=== PATIENT | male | born 1950 | race Caucasian/White ===

== ENCOUNTER → 2019-03-19 | Outpatient (CLI) | payer OTHER, MEDICARE ==
--- NOTE | 2019-03-19 11:01 | 2DMMODE ---
[facility] [place] [address] 2 D/M-MODE ECHOCARDIOGRAM Name: JEROME HUNTER [id number] Admission: 03/19/19 Attend Phys: Jef Clark Discharge: Date of : 50 Report #: [id number] THIS REPORT FOR: //name// APPROVED REPORT Study performed: 03/19/2019 10:24:21 EXAM: Comprehensive 2D, Doppler, and color-flow Echocardiogram Patient Location: Out-Patient Status: routine BSA: 1.98 HR: 68 bpm BP: 106/80 mmHg Rhythm: NSR/Irregular Other Information Study Quality: Good Indications Palpitations 2D Dimensions RVDd: 35.67 mm IVSd: 8.57 (7-11mm) LVOT Diam: 21.29 (18-24mm) LVDd: 43.49 mm PWd: 9.35 (7-11mm) Ascending Ao: 29.37 (22-36mm) LVDs: 30.96 (25-40mm) Aortic Root: 32.10 mm Volumes Left Atrial Volume (Systole) Single Plane 4CH: 48.77 mL Single Plane 2CH: 51.02 mL LA ESV Index: 28.00 mL/m2 Aortic Valve AoV Peak Christ.: 1.03 m/s AO Peak Gr.: 4.21 mmHg LVOT Max P.36 mmHg LVOT Max V: 0.77 m/s DIANA Vmax: 2.67 cm2 Mitral Valve E/A Ratio: 1.5 MV Decel. Time: 144.33 ms MV E Max Christ.: 1.01 m/s [facility] [address] [place] [address] 2 D/M-MODE ECHOCARDIOGRAM Name: JEROME HUNTER Room #: REG [facility] [id number] Admission: 03/19/19 Attend Phys: Jef Clark Discharge: Date of : 50 Report #: [id number] MV A Christ.: 0.66 m/s MV PHT: 41.85 ms IVRT: 86.51 ms Pulmonary Valve PV Peak Christ.: 0.53 m/s PV Peak Gr.: 1.13 mmHg Pulmonary Vein P Vein S: 0.77 m/s P Vein A: 0.36 m/s P Vein D: 0.59 m/s P Vein A Dur.: 103.8 msec P Vein S/D Ratio: 1.31 Tricuspid Valve TR Peak Christ.: 2.50 m/s RAP Estimate: 5.00 mmHg TR Peak Gr.: 24.00 mmHg PA Pressure: 29.00 mmHg Left Ventricle The left ventricle is normal size. There is normal LV segmental wall motion. There is normal left ventricular wall thickness. Left ventricular systolic function is normal. LVEF is 55-60%. Right Ventricle The right ventricle is normal size. The right ventricular systolic function is normal. Atria The left atrium size is normal. The right atrium size is normal. Aortic Valve The aortic valve is normal in structure. Trace aortic regurgitation. There is no aortic valvular stenosis. Mitral Valve The mitral valve is normal in structure. Trace mitral regurgitation. Tricuspid Valve The tricuspid valve is normal in structure. Mild tricuspid regurgitation. Estimated PAP is 30mmHg. Pulmonic Valve Pulmonic valve is not well visualized. Trace pulmonic regurgitation. [facility] [place] [address] 2 D/M-MODE ECHOCARDIOGRAM Name: JEROME HUNTER Room #: REG ASTRID Monge#: [id number] Admission: 03/19/19 Attend Phys: [facility] Discharge: Date of : 50 Report #: [id number] Great Vessels The aortic root is normal in size. The ascending aorta is normal in size. IVC is normal in size and collapses >50% with inspiration. Pericardium There is no pericardial effusion. <Conclusion> The left ventricle is normal size. LVEF is 55-60%. The aortic valve is normal in structure. Trace aortic regurgitation. The mitral valve is normal in structure. Trace mitral regurgitation. The tricuspid valve is normal in structure. Mild tricuspid regurgitation. Estimated PAP is 30mmHg. Pulmonic valve is not well visualized. Trace pulmonic regurgitation. There is no pericardial effusion. <ELECTRONICALLY SIGNED> By: Mir Hill MD 03/19/19 1101 110 00 Mir Hill MD /INF
== END ==
LOC: CV 10:11
DX: I36.1 Nonrheumatic tricuspid (valve) insufficiency (principal)

== ENCOUNTER → 2021-03-14 | Outpatient (CLI) | payer OTHER, MEDICARE | LOC: SJCVC 13:14 | PROVIDERS: ATTEND Internal Medicine Cardiovascular Disease | DX: R94.31 Abnormal electrocardiogram [ECG] [EKG] (principal); I47.1 Supraventricular tachycardia; R00.2 Palpitations; R93.1 Abnormal findings on diagnostic imaging of heart and coronary circulation; E29.1 Testicular hypofunction; Z79.899 Other long term (current) drug therapy; Z72.89 Other problems related to lifestyle ==

== ENCOUNTER → 2021-03-23 | Outpatient (CLI) | payer OTHER, MEDICARE | LOC: SJCVCIMAG 07:21 | PROVIDERS: ATTEND Internal Medicine Cardiovascular Disease | DX: I07.1 Rheumatic tricuspid insufficiency (principal); R06.00 Dyspnea, unspecified ==